=== PATIENT | male | born 1955 | race Caucasian/White ===

== ENCOUNTER 2018-09-15 12:25 | Emergency (ER) | payer BC ==
[2018-09-15] MEDS ORDERED: Sodium Chloride 0.9% 10 ML Syringe FLUSH PRN (12:42)
[2018-09-15] MEDS ORDERED: Aspirin 81 MG Tab.Chew PO ONE (13:33)
[2018-09-15] MEDS ORDERED: LORazepam 2 MG/ML SDV IVPUSH STA (13:44)
[2018-09-15] MEDS ORDERED: Sodium Chloride 0.9% 1,000 ML IV ONE (13:45)
--- NOTE | 2018-09-15 14:30 | EDM.PDOC ---
ED HPI GENERAL MEDICAL PROBLEM - General Chief Complaint: Neuro Symptoms/Deficits Stated Complaint: stroke code Time Seen by Provider: 09/15/18 13:15 Source of Information: Reports: Patient, Other (co-worker) History Limitations: Reports: Other (possible stroke/communication difficulties) - History of Present Illness INITIAL COMMENTS - FREE TEXT/NARRATIVE: Patient brought in by co-worker after he was noted that he was not quite his usual self since reporting for work at 7am. 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 Some issues with communication noted. Patient says that his last "normal" was last night before going to bed. He was aware that he was having some issues with confusion/change when he woke this morning but went to work anyway. Mild headache. Cannot tell us exactly were the headache is located, just says "my head". No noted focal weakness. Denied being on any meds. Med list of active medications obtained from local pharmacy. Noted to be slow answering questions, would give inaccurate answers such as birthdate or saying no to being on meds. Somewhat unreliable with history given the above. Also noted to have difficulty at times following directions and forming sentences Denies recent injury/health changes Headache Pain Score (Numeric/FACES): 5 - Related Data Allergies Allergy/AdvReac Type Severity Reaction Status Date / Time No Known Allergies Allergy Verified 09/15/18 13:19 Past Medical History Cardiovascular History: Reports: Bypass, High Cholesterol, Hypertension Endocrine/Metabolic History: Reports: Obesity/BMI 30+ Social & Family History - Living Situation & Occupation Living situation: Reports: , with Family Occupation: Employed ED ROS GENERAL - Review of Systems Review Of Systems: See Below Constitutional: Reports: No Symptoms HEENT: Reports: No Symptoms Respiratory: Reports: No Symptoms. Denies: Shortness of Breath, Pleuritic Chest Pain, Cough Cardiovascular: Reports: No Symptoms. Denies: Chest Pain GI/Abdominal: Reports: No Symptoms : Reports: No Symptoms Musculoskeletal: Reports: No Symptoms Skin: Reports: No Symptoms Neurological: Reports: Confusion, Headache, Trouble Speaking, Change in Speech, Other (head feels fuzzy.) Psychiatric: Reports: Anxiety Hematologic/Lymphatic: Reports: No Symptoms ED EXAM, NEURO - Physical Exam Exam: See Below Exam Limited By: Other (problems following directions and answering questions) General Appearance: Alert, No Apparent Distress, Obese Eye Exam: Bilateral Eye: EOMI, PERRL Ears: Normal External Exam, Normal Canal, Hearing Grossly Normal, Normal TMs Nose: No: Nasal Deformity, Nasal Swelling, Nasal Drainage Throat/Mouth: Normal Lips, Normal Voice, No Airway Compromise Head Exam: Atraumatic, Normocephalic Neck: Normal Inspection, Supple, Non-Tender, Full Range of Motion Respiratory/Chest: No Respiratory Distress, No Accessory Muscle Use, Wheezing ( faint, left lower lung). No: Crackles, Rales, Rhonchi, Stridor Cardiovascular: Normal Peripheral Pulses, Regular Rate, Rhythm, No Edema, No Murmur GI/Abdominal: Normal Bowel Sounds, Soft, Non-Tender (Male) Exam: Deferred Rectal (Males) Exam: Deferred Neurological: Alert, Normal Mood/Affect, Normal Dorsiflexion, CN II-XII Intact, Normal Plantar Flexion, Normal Gait, No Motor/Sensory Deficits DTR: 1+: Bicep (R), Bicep (L), Patella (R), Patella (L) Back Exam: No: CVA Tenderness (L), CVA Tenderness (R) Extremities: Normal Inspection, Normal Range of Motion, Non-Tender, Normal Capillary Refill Psychiatric: Anxious Skin Exam: Warm, Dry, Intact, Normal Color EKG INTERPRETATION EKG Date: 09/15/18 Time: 12:55 Rhythm: Other (Sinus, periodic PVCs) Rate (Beats/Min): 70 [place]: Normal P-Wave: Present QRS: Other (T wave appearance in V1-V4 slighly unusual, could reflect elevation) ST-T: Normal QT: Normal Comparison: Change From Previous EKG (previous EKG showed left BBB) Course - Orders/Labs/Meds Orders: Active Orders 24 hr Category Date Time Status Blood Glucose Check, Bedside [RC] ONETIME Care 09/15/18 12:30 Active Cardiac Monitoring [RC] . DIRECTED Care 09/15/18 12:42 Active Communication Order [RC] PER UNIT ROUTINE Care 09/15/18 14:00 Active EKG Documentation Completion [RC] ASDIRECTED Care 09/15/18 12:49 Active Head wo Cont [CT] Stat Exams 09/15/18 12:25 Taken PROLACTIN [REF] Stat Lab 09/15/18 12:42 Received Saline Lock Insert [OM.PC] Routine Oth 09/15/18 12:42 Ordered Labs: Laboratory Tests 09/15/18 09/15/18 09/15/18 Range/Units 12:42 12:42 12:42 WBC 10.8 H (4.0-10.2) K/uL RBC 5.60 H (4.33-5.41) M/uL Hgb 16.3 (13.1-16.8) g/dL Hct 46.5 (39.0-49.0) % MCV 83.0 L (84.0-98.0) fL MCH 29.1 (28.2-33.3) pg MCHC 35.1 (31.7-36.0) g/dL RDW 14.5 H (11.2-14.1) % Plt Count 292 (150-350) K/uL Neut % (Auto) 62.1 (45.0-80.0) % Lymph % (Auto) 21.7 (10.0-50.0) % [place] % (Auto) 11.4 (2.0-14.0) % Eos % (Auto) 4.5 (0.0-5.0) % Baso % (Auto) 0.3 (0.0-2.0) % Neut # (Auto) 6.69 (1.40-7.00) K/uL Lymph # (Auto) 2.33 (0.50-3.50) K/uL [place] # (Auto) 1.23 H (0.00-1.00) K/uL Eos # (Auto) 0.48 (0.00-0.50) K/uL Baso # (Auto) 0.03 (0.00-0.20) K/uL PT 11.4 (9.5-12.0) SEC INR 1.1 APTT 28.8 (21.0-31.3) SEC D-Dimer, Quantitative 675 H (0-400) ng/mL Sodium (136-145) mmol/L Potassium (3.5-5.1) mmol/L Chloride (98-107) mmol/L Carbon Dioxide (21.0-32.0) mmol/L BUN (7-18) mg/dL Creatinine (0.51-1.17) mg/dL Est Cr Clr Drug Dosing mL/min Estimated GFR (MDRD) mL/min Glucose (74-106) mg/dL Calcium (8.5-10.1) mg/dL Magnesium (1.8-2.4) mg/dL Total Bilirubin (0.2-1.0) mg/dL AST (15-37) U/L ALT (12-78) U/L Alkaline Phosphatase (46-116) IU/L Creatine Kinase (26-308) U/L Creatine Kinase Index (0.0-2.5) % CK-MB (CK-2) (0.00-3.60) ng/mL Troponin I (0.000-0.056) ng/mL NT-Pro-B Natriuret Pep (0-125) pg/mL Total Protein (6.4-8.2) g/dL Albumin (3.4-5.0) g/dL 09/15/18 09/15/18 09/15/18 Range/Units 12:42 15:15 15:45 WBC (4.0-10.2) K/uL RBC (4.33-5.41) M/uL Hgb (13.1-16.8) g/dL Hct (39.0-49.0) % MCV (84.0-98.0) fL MCH (28.2-33.3) pg MCHC (31.7-36.0) g/dL RDW (11.2-14.1) % Plt Count (150-350) K/uL Neut % (Auto) (45.0-80.0) % Lymph % (Auto) (10.0-50.0) % [place] % (Auto) (2.0-14.0) % Eos % (Auto) (0.0-5.0) % Baso % (Auto) (0.0-2.0) % Neut # (Auto) (1.40-7.00) K/uL Lymph # (Auto) (0.50-3.50) K/uL [place] # (Auto) (0.00-1.00) K/uL Eos # (Auto) (0.00-0.50) K/uL Baso # (Auto) (0.00-0.20) K/uL PT (9.5-12.0) SEC INR APTT (21.0-31.3) SEC D-Dimer, Quantitative (0-400) ng/mL Sodium 137 (136-145) mmol/L Potassium 3.8 (3.5-5.1) mmol/L Chloride 102 (98-107) mmol/L Carbon Dioxide 23.3 (21.0-32.0) mmol/L BUN 19 H (7-18) mg/dL Creatinine 1.41 H (0.51-1.17) mg/dL Est Cr Clr Drug Dosing 53.62 mL/min Estimated GFR (MDRD) 51 mL/min Glucose 114 H (74-106) mg/dL Calcium 8.4 L (8.5-10.1) mg/dL Magnesium 1.5 L (1.8-2.4) mg/dL Total Bilirubin 0.7 (0.2-1.0) mg/dL AST 24 (15-37) U/L ALT 31 (12-78) U/L Alkaline Phosphatase 103 (46-116) IU/L Creatine Kinase 213 (26-308) U/L Creatine Kinase Index 1.5 TNP (0.0-2.5) % CK-MB (CK-2) 3.30 3.00 (0.00-3.60) ng/mL Troponin I 0.126 H* 0.147 H* (0.000-0.056) ng/mL NT-Pro-B Natriuret Pep 220 H (0-125) pg/mL Total Protein 7.6 (6.4-8.2) g/dL Albumin 3.5 (3.4-5.0) g/dL Meds: Medications Discontinued Medications Generic Name Dose Route Start Last Admin Trade Name Marina PRN Reason Stop Dose Admin Aspirin 324 mg 09/15/18 13:33 09/15/18 13:56 Aspirin PO 09/15/18 13:34 324 mg ONETIME ONE Administration Sodium Chloride 1,000 mls @ 100 mls/hr 09/15/18 13:45 09/15/18 13:56 Normal Saline IV 09/15/18 23:44 100 mls/hr .BOLUS ONE Administration Lorazepam 1 mg 09/15/18 13:44 09/15/18 13:55 Ativan IVPUSH 09/15/18 13:45 1 mg NOW STA Administration Magnesium Sulfate/Dextrose 1 gm 09/15/18 15:08 09/15/18 15:43 Magnesium 1 Gm In D5w 100 Ml IV 09/15/18 15:09 1 gm ONETIME ONE Administration Sodium Chloride 10 ml 09/15/18 12:42 Saline Flush FLUSH ASDIRECTED PRN Keep Vein Open - Radiology Interpretation CT Results Date: 09/15/18 CT Results Time: 13:11 (change noted left parietal-occipital area that could represent a stroke. ) - Re-Assessments/Exams Free Text/Narrative Re-Assessment/Exam: Stroke code called upon patient's arrival. Protocol initiated. Patient taken directly to scanner. There was approximately a 30min delay sending the films to be read due to overhead door technician error. This led to a delay in receiving read from [facility] which was received at 1311. Changes noted left parietal occipital area. Call was immediately placed to [facility]. Discussed patient with at 1320. Given timeframe since last normal ( last night) patient not candidate from [facility]. reviewed the CT studies and had concern that there could be another process causing the observed intracranial changes, including infection or tumor. Patient accepted in transfer by , hospitalist. Labs also became available. Essentially normal WBC. Elevated Troponin noted. Patient denied chest pain/anginal symptoms. EKG showed mild changes in ventricular leads with possible minimal ST elevation. EKG faxed to [facility] so that would be able to review it. Unable to fax due to issues on receiving end. Most recent reattempt to fax at 1420. Normal CK-MB noted. ASA given as precaution (hemorrhagic stroke had been ruled out). 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 Mild elevation DDimer/BNP noted. Renal insufficiency identified. IV fluids started in ER to help with BUN/Cr as patient will need to be scanned with contrast once he is at [facility]. Prolonged wait time in ER due to no open bed being available at [facility]. Free Text/Narrative Re-Assessment/Exam: 09/15/18 15:43 Bed assignment received. EMS contacted to transfer patient. Departure - Departure Time of Disposition: 16:00 Disposition: DC/Tfer to Acute Hospital 02 Condition: Good Clinical Impression: Stroke-like symptom, Hypomagnesemia - Discharge Information *PRESCRIPTION DRUG MONITORING PROGRAM REVIEWED*: Not Applicable *COPY OF PRESCRIPTION DRUG MONITORING REPORT IN PATIENT JEROME: Not Applicable Referrals: PCP,Not In Area [Primary Care Provider] - Forms: ED Department Discharge - My Orders Last 24 Hours: My Active Orders 09/15/18 12:25 Head wo Cont [CT] Stat 09/15/18 12:30 Blood Glucose Check, Bedside [RC] ONETIME 09/15/18 12:42 Cardiac Monitoring [RC] . DIRECTED PROLACTIN [REF] Stat Saline Lock Insert [OM.PC] Routine 09/15/18 12:49 EKG Documentation Completion [RC] ASDIRECTED 09/15/18 14:00 Communication Order [RC] PER UNIT ROUTINE - Assessment/Plan Last 24 Hours: My Active Orders 09/15/18 12:25 Head wo Cont [CT] Stat 09/15/18 12:30 Blood Glucose Check, Bedside [RC] ONETIME 09/15/18 12:42 Cardiac Monitoring [RC] . DIRECTED PROLACTIN [REF] Stat Saline Lock Insert [OM.PC] Routine 09/15/18 12:49 EKG Documentation Completion [RC] ASDIRECTED 09/15/18 14:00 Communication Order [RC] PER UNIT ROUTINE
== END 2018-09-15 16:07 ==
LOC: LL.ED 12:25
DX: R51 Headache (principal); R41.0 Disorientation, unspecified; R47.9 Unspecified speech disturbances; E83.42 Hypomagnesemia; I10 Essential (primary) hypertension; E78.00 Pure hypercholesterolemia, unspecified
CPT/HCPCS: 36415; 70450; 80053; 82550; 82553; 83735; 83880; 84146; 84484; 85025; 85379; 85610; 85730; 93005; 96361; 96365; 96375; 99285; A9270-GY; J2060; J3475; J7030

== ENCOUNTER 2021-04-29 10:57 | Emergency (ER) | payer MEDICARE, OTHER ==
[2021-04-29] MEDS ORDERED: Nitroglycerin 0.4 MG Tab.SL SL ONE (11:26)
--- NOTE | 2021-04-29 11:26 | EDM.PDOC ---
ED HPI GENERAL MEDICAL PROBLEM - General Chief Complaint: Chest Pain Stated Complaint: chest pain Time Seen by Provider: 04/29/21 11:12 Source of Information: Reports: Patient History Limitations: Reports: No Limitations - History of Present Illness INITIAL COMMENTS - FREE TEXT/NARRATIVE: Patient comes to ER with substernal chest pain. 11/16. Waxes and wanes a bit but is not affected by positional change/breathing. 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 Normal morning for patient. Started to notice the central chest pain when driving home from oil change appointment. Came to ER when pain did not go away after a half hour. Denies any radiation of pain. No SOB/diaphoresis/nausea. No other changes reported. Does not have Nitro. chest pain Pain Score (Numeric/FACES): 1 - Related Data Allergies Allergy/AdvReac Type Severity Reaction Status Date / Time No Known Allergies Allergy Verified 04/29/21 11:17 Home Meds: Home Meds Albuterol [Take Home: Albuterol 18 GM, 1 INH Pack] 1 - 2 puff INH Q4HR PRN 04/29/21 [History] Aspirin [Aspirin EC] 81 mg PO DAILY 04/29/21 [History] Ezetimibe 10 mg PO DAILY 04/29/21 [History] Fluticasone/Vilanterol [Breo Ellipta 200-25 MCG Inhalation Kit] 1 puff INH DAILY 04/29/21 [History] Warfarin Sodium [Jantoven] 5 mg PO MOWEFR@0800 04/29/21 [History] Warfarin Sodium [Jantoven] 7.5 mg PO SUTUTHSA@0800 04/29/21 [History] atorvaSTATin Calcium [Atorvastatin Calcium] 80 mg PO BEDTIME 04/29/21 [History] carvediloL [Carvedilol] 6.25 mg PO Q12HR 04/29/21 [History] lisinopriL [Lisinopril] 5 mg PO BID 04/29/21 [History] Past Medical History Cardiovascular History: Reports: Bypass, High Cholesterol, Hypertension Endocrine/Metabolic History: Reports: Obesity/BMI 30+ Social & Family History - Tobacco Use Tobacco Use Status *Q: Never Tobacco User - Caffeine Use Caffeine Use: Reports: Soda - Alcohol Use Alcohol Use History: Yes Alcohol Use Frequency: Rarely - Living Situation & Occupation Living situation: Reports: , with Family Occupation: Employed ED ROS GENERAL - Review of Systems Review Of Systems: See Below Constitutional: Reports: No Symptoms HEENT: Reports: No Symptoms Respiratory: Reports: No Symptoms. Denies: Shortness of Breath, Wheezing, Pleuritic Chest Pain, Cough Cardiovascular: Reports: Chest Pain. Denies: Edema, Lightheadedness, Palpitations, Syncope GI/Abdominal: Reports: No Symptoms : Reports: No Symptoms Musculoskeletal: Reports: Other (no acute changes from baseline) Skin: Reports: No Symptoms Neurological: Reports: No Symptoms Psychiatric: Reports: No Symptoms Hematologic/Lymphatic: Reports: No Symptoms Immunologic: Reports: No Symptoms ED EXAM, GENERAL - Physical Exam Exam: See Below Exam Limited By: No Limitations General Appearance: Alert, WD/WN, No Apparent Distress Eye Exam: Bilateral Eye: EOMI, PERRL Ears: Normal External Exam, Hearing Grossly Normal Nose: No: Nasal Deformity, Nasal Swelling, Nasal Drainage Throat/Mouth: Normal Lips, Normal Voice, No Airway Compromise Head: Atraumatic, Normocephalic Neck: Supple, Non-Tender, Full Range of Motion Respiratory/Chest: No Respiratory Distress, Lungs Clear, Normal Breath Sounds, No Accessory Muscle Use, Chest Non-Tender Cardiovascular: Regular Rate, Rhythm, No Edema, No Murmur GI/Abdominal: Soft, Non-Tender, No Distention (Male) Exam: Deferred Rectal (Males) Exam: Deferred Back Exam: No: CVA Tenderness (L), CVA Tenderness (R), Decreased Range of Motion, Muscle Spasm Extremities: Non-Tender, No Pedal Edema, Normal Capillary Refill Neurological: Alert, Oriented, Normal Cognition, No Motor/Sensory Deficits Psychiatric: Normal Affect, Normal Mood Skin Exam: Warm, Dry, Intact, Normal Color #1 Interpretation EKG Date: 04/29/21 Time: 11:19 Rhythm: NSR Rate (Beats/Min): 64 [place]: Normal P-Wave: Present QRS: Normal ST-T: Other (Mild atypical appearance V1-3/III) QT: Normal Comparison: No Change (No significant change when compared to EKG from 2019. Intermittent PVCs noted.) #2 Interpretation EKG Date: 04/29/21 Time: 16:10 Rhythm: Other (sinus bradycardia) Rate (Beats/Min): 57 [place]: Normal P-Wave: Present QRS: Normal ST-T: Other (has minor morphology change similar to last EKG ventricular leads. T wave flipped in direction in II/III/AVL/AVF) QT: Normal Course - Vital Signs Last Recorded V/S: Last Vital Signs Temp 36.3 C 04/29/21 15:15 Pulse 55 L 04/29/21 16:00 Resp 17 04/29/21 16:00 BP 128/72 04/29/21 16:00 Pulse Ox 98 04/29/21 11:24 - Orders/Labs/Meds Orders: Active Orders 24 hr Category Date Time Status Chest 1V Frontal [CR] Stat Exams 04/29/21 11:00 Taken CKMB [REF] Stat Lab 04/29/21 11:09 Ordered TROPONIN I HIGH SENSITIVITY [CHEM] Timed Lab 04/29/21 21:00 Ordered Sodium Chloride 0.9% [Saline Flush] Med 04/29/21 11:11 Active 10 ml FLUSH ASDIRECTED PRN Saline Lock Insert [OM.PC] Routine Oth 04/29/21 11:11 Ordered Medication Orders Sodium Chloride (Sodium Chloride 0.9% 10 Ml Syringe) 10 ml FLUSH ASDIRECTED PRN PRN Reason: Keep Vein Open Last Admin: 04/29/21 15:26 Dose: 10 ml Documented by: Admin: 04/29/21 14:23 Dose: 10 ml Documented by: ROBBIN Labs: Laboratory Tests 04/29/21 04/29/21 04/29/21 Range/Units 11:05 11:05 11:05 WBC 8.7 (4.0-10.2) K/uL RBC 5.83 H (4.33-5.41) M/uL Hgb 16.9 H (13.1-16.8) g/dL Hct 48.7 (39.0-49.0) % MCV 83.5 L (84.0-98.0) fL MCH 29.0 (28.2-33.3) pg MCHC 34.7 (31.7-36.0) g/dL RDW 14.9 H (11.2-14.1) % Plt Count 244 (150-350) K/uL Neut % (Auto) 62.9 (45.0-80.0) % Lymph % (Auto) 22.6 (10.0-50.0) % [place] % (Auto) 10.0 (2.0-14.0) % Eos % (Auto) 4.3 (0.0-5.0) % Baso % (Auto) 0.2 (0.0-2.0) % Neut # (Auto) 5.46 (1.40-7.00) K/uL Lymph # (Auto) 1.96 (0.50-3.50) K/uL [place] # (Auto) 0.87 (0.00-1.00) K/uL Eos # (Auto) 0.37 (0.00-0.50) K/uL Baso # (Auto) 0.02 (0.00-0.20) K/uL PT 21.4 H (9.5-12.0) SEC INR 2.2 APTT 31.7 (24.5-32.8) SEC D-Dimer, Quantitative (0-400) ng/mL Sodium 140 (136-145) mmol/L Potassium 3.9 (3.5-5.1) mmol/L Chloride 104 (98-107) mmol/L Carbon Dioxide 24.1 (21.0-32.0) mmol/L Anion Gap 11.9 (7-15) meq/L BUN 25 H (7-18) mg/dL Creatinine 1.77 H (0.51-1.17) mg/dL Est Cr Clr Drug Dosing 41.05 mL/min Estimated GFR (MDRD) 39 mL/min Glucose 138 H (70-99) mg/dL Lactic Acid (0.4-2.0) mmol/L Calcium 8.5 (8.5-10.1) mg/dL Magnesium 1.6 L (1.8-2.4) mg/dL Total Bilirubin 1.3 H (0.2-1.0) mg/dL AST 25 (15-37) U/L ALT 37 (12-78) U/L Alkaline Phosphatase 81 (46-116) IU/L Creatine Kinase 139 (26-308) U/L Troponin I High Sens 213 H* (<=76) ng/L NT-Pro-B Natriuret Pep 160 H (0-125) pg/mL Total Protein 7.3 (6.4-8.2) g/dL Albumin 3.9 (3.4-5.0) g/dL TSH, Ultra Sensitive 1.266 (0.358-3.740) mIU/mL 04/29/21 04/29/21 04/29/21 Range/Units 11:05 11:05 15:00 WBC (4.0-10.2) K/uL RBC (4.33-5.41) M/uL Hgb (13.1-16.8) g/dL Hct (39.0-49.0) % MCV (84.0-98.0) fL MCH (28.2-33.3) pg MCHC (31.7-36.0) g/dL RDW (11.2-14.1) % Plt Count (150-350) K/uL Neut % (Auto) (45.0-80.0) % Lymph % (Auto) (10.0-50.0) % [place] % (Auto) (2.0-14.0) % Eos % (Auto) (0.0-5.0) % Baso % (Auto) (0.0-2.0) % Neut # (Auto) (1.40-7.00) K/uL Lymph # (Auto) (0.50-3.50) K/uL [place] # (Auto) (0.00-1.00) K/uL Eos # (Auto) (0.00-0.50) K/uL Baso # (Auto) (0.00-0.20) K/uL PT (9.5-12.0) SEC INR APTT (24.5-32.8) SEC D-Dimer, Quantitative 128 (0-400) ng/mL Sodium (136-145) mmol/L Potassium (3.5-5.1) mmol/L Chloride (98-107) mmol/L Carbon Dioxide (21.0-32.0) mmol/L Anion Gap (7-15) meq/L BUN (7-18) mg/dL Creatinine (0.51-1.17) mg/dL Est Cr Clr Drug Dosing mL/min Estimated GFR (MDRD) mL/min Glucose (70-99) mg/dL Lactic Acid 1.2 (0.4-2.0) mmol/L Calcium (8.5-10.1) mg/dL Magnesium (1.8-2.4) mg/dL Total Bilirubin (0.2-1.0) mg/dL AST (15-37) U/L ALT (12-78) U/L Alkaline Phosphatase (46-116) IU/L Creatine Kinase (26-308) U/L Troponin I High Sens 193 H* (<=76) ng/L NT-Pro-B Natriuret Pep (0-125) pg/mL Total Protein (6.4-8.2) g/dL Albumin (3.4-5.0) g/dL TSH, Ultra Sensitive (0.358-3.740) mIU/mL Meds: Medications Generic Name Dose Route Start Last Admin Trade Name Freq PRN Reason Stop Dose Admin Sodium Chloride 10 ml 04/29/21 11:11 04/29/21 15:26 Sodium Chloride 0.9% 10 Ml Syringe FLUSH 10 ml ASDIRECTED PRN Administration Keep Vein Open Discontinued Medications Generic Name Dose Route Start Last Admin Trade Name Freq PRN Reason Stop Dose Admin Aspirin 162 mg 04/30/21 11:46 Aspirin 81 Mg Tab.Chew PO 04/30/21 11:47 ONETIME ONE Aspirin Confirm 04/29/21 14:11 04/29/21 14:22 Aspirin 81 Mg Tab.Chew Administered 04/29/21 14:12 Not Given Dose 162 mg .ROUTE .STK-MED ONE Aspirin 162 mg 04/29/21 11:46 04/29/21 14:22 Aspirin 81 Mg Tab.Chew PO 04/29/21 11:47 162 mg ONETIME ONE Administration Magnesium Sulfate/Dextrose 1 100 mls @ 100 mls/hr 04/29/21 12:28 04/29/21 14:23 gm/ Premix IV 04/29/21 13:27 100 mls/hr ONETIME ONE Administration Metoprolol Tartrate 50 mg 04/29/21 12:32 04/29/21 15:25 Metoprolol Tartrate 50 Mg Tab PO 04/29/21 12:33 50 mg ONETIME ONE Administration Metoprolol Tartrate Confirm 04/29/21 15:21 04/29/21 15:27 Metoprolol Tartrate 50 Mg Tab Administered 04/29/21 15:22 Not Given Dose 50 mg .ROUTE .STK-MED ONE Nitroglycerin 0.4 mg 04/29/21 11:26 04/29/21 11:31 Nitroglycerin 0.4 Mg Tab.Sl SL 04/29/21 11:27 0.4 mg ONETIME ONE Administration - Radiology Interpretation Free Text/Narrative:: No acute changes noted on chest xray - Re-Assessments/Exams Free Text/Narrative Re-Assessment/Exam: 04/29/21 12:38 Patient had single baby ASA earlier today. 2 additional given PO in ER. Therapeutic INR. Vital signs stable. Patient very vague on severity of chest discomfort when asked. He felt it was a mild discomfort. Not much change/improvement noted with nitro SL. BP dropped significantly and second dose not given. No obvious acute changes on EKG or chest xray. Labs did show elevated Cr of 1.77 and proBNP 160. Patient has history of CHF/chronic renal insufficiency. Mag low at 1.6 HS Troponin elevated at 213. Cannot exclude patient's chronic heart and renal failure contributing to that elevation. EKG faxed to [facility] and patient discussed with on-call Cardiology, . She felt that there was no immediate indication for transfer and that chest pain could be due to non-cardiac cause such as soft tissue/musc-skel or GI etiology. Recommended serial troponins and keeping patient here. [facility] is currently full and not accepting non-emergent patients. Patient does not want to be admitted to observation at this time but is willing to stay as an ER patient and have lab/EKG rechecked at 1500. He declined when offer was made to contact [facility] to see if they had available beds at this time. 04/29/21 17:33 Recheck HST 193 EKG showed no change in ventricular leads but Ts changed direction in I,II,III,AVL,AVF. Patient pain-free and resting comfortably. Given that [facility] is currently full, patient gave OK for us to call and review new lab/EKG and today's visit with [facility] Cardiology. EKGs faxed and reviewed by Dr. Brady. After reviewing labs/EKGs/Troponins he felt that next best move if for patient to have stress test. Patient is scheduled for a stress test at [facility] on Saturday. Patient does not want to be in the hospital being observed overnight. Given that patient is pain free in addition to the above, Dr. Brady did not feel that the patient had to stay overnight and have additional labs in AM. This was all reviewed with the patient. He continues to want to go home. It was offered to him that we could check another troponin as an outpatient tomorrow if he is willing to come in to the hospital. He knows that he should be rechecked if he starts having new problems with chest pain/SOB/diaphoresis etc. He does not want Rx for Nitro/says he does not like it. Differential for chest pain includes chest wall pain/GI/cardiac Departure - Departure Time of Disposition: 18:00 Disposition: Home, Self-Care 01 Condition: Good Clinical Impression: Chest pain Qualifiers: Chest pain type: precordial chest pain Qualified Code(s): R07.2 - Precordial pain - Discharge Information *PRESCRIPTION DRUG MONITORING PROGRAM REVIEWED*: Not Applicable *COPY OF PRESCRIPTION DRUG MONITORING REPORT IN PATIENT JEROME: Not Applicable Instructions: Nonspecific Chest Pain, Adult Referrals: Clarice Savage NP [Primary Care Provider] - Forms: ED Department Discharge Additional Instructions: See how you feel over the next few days until you get your stress test on Saturday. Avoid walking/strenuous activity until after stress test and are given clearance to walk. If you re-develop chest pain get rechecked, especially if accompanied by nausea/sweating/shortness of breath. We would be more than happy to recheck your Troponin/EKG tomorrow if you are willing to return for another lab draw. Sepsis Event Note (ED) - Evaluation Sepsis Screening Result: No Definite Risk - Focused Exam Vital Signs: Vital Signs Temp Pulse Pulse Resp BP BP Pulse Ox 04/29/21 16:00 55 L 17 128/72 04/29/21 15:25 60 124/92 H 04/29/21 15:15 36.3 C 64 17 124/92 H 04/29/21 14:30 60 18 146/78 H 04/29/21 14:00 61 16 105/52 L 04/29/21 13:30 89 16 139/58 L 04/29/21 13:00 100 15 107/64 04/29/21 12:15 71 15 104/80 04/29/21 12:00 69 14 99/75 04/29/21 11:55 36.4 C 90 15 78/52 L 04/29/21 11:44 70 15 100/68 04/29/21 11:31 141/98 H 04/29/21 11:24 66 16 141/98 H 98 04/29/21 11:09 62 15 112/79 95 04/29/21 11:00 36.4 C 66 15 112/79 98 - My Orders Last 24 Hours: My Active Orders 04/29/21 11:00 Chest 1V Frontal [CR] Stat 04/29/21 11:09 CKMB [REF] Stat 04/29/21 11:11 Sodium Chloride 0.9% [Saline Flush] 10 ml FLUSH ASDIRECTED PRN Saline Lock Insert [OM.PC] Routine 04/29/21 21:00 TROPONIN I HIGH SENSITIVITY [CHEM] Timed - Assessment/Plan Last 24 Hours: My Active Orders 04/29/21 11:00 Chest 1V Frontal [CR] Stat 04/29/21 11:09 CKMB [REF] Stat 04/29/21 11:11 Sodium Chloride 0.9% [Saline Flush] 10 ml FLUSH ASDIRECTED PRN Saline Lock Insert [OM.PC] Routine 04/29/21 21:00 TROPONIN I HIGH SENSITIVITY [CHEM] Timed
[2021-04-29 11:37] LABS: PTT,PARTIAL THROMBOPLSTIN TIME 31.7 SEC (24.5-32.8)
[2021-04-29 11:41] LABS: ANION GAP 11.9 meq/L (7-15)
[2021-04-29] MEDS ORDERED: Aspirin 81 MG Tab.Chew PO ONE (11:46)
[2021-04-29] MEDS ORDERED: Metoprolol Tartrate 50 MG Tab PO ONE (12:32)
[2021-04-29] MEDS ORDERED: Aspirin 81 MG Tab.Chew ONE (14:11)
[2021-04-29] MEDS: Sodium Chloride 0.9% 10 ML Syringe FLUSH PRN ×3 (14:23→17:51)
[2021-04-29] MEDS ORDERED: Metoprolol Tartrate 50 MG Tab ONE (15:21)
[2021-04-29 16:49] VITALS: BP 128/72; PULSE 55
[2021-04-29] MEDS ORDERED: Pantoprazole 40 MG Vial IVPUSH ONE (17:41)
[2021-04-30] MEDS ORDERED: Aspirin 81 MG Tab.Chew PO ONE (11:46)
== END 2021-04-29 18:10 | disposition home or self-care (01) ==
LOC: LL.ED 10:57
DX: R07.2 Precordial pain (principal); E78.00 Pure hypercholesterolemia, unspecified; I10 Essential (primary) hypertension; E66.9 Obesity, unspecified; Z68.30 Body mass index [BMI] 30.0-30.9, adult; Z95.1 Presence of aortocoronary bypass graft; Z79.82 Long term (current) use of aspirin; Z79.01 Long term (current) use of anticoagulants; Z79.899 Other long term (current) drug therapy
CPT/HCPCS: 36415; 71045; 80053; 82550; 83605; 83735; 83880; 84443; 84484; 85025; 85379; 85610; 85730; 93005; 93010; 96365; 96375; 99284; 99285-25; A9270-GY; C9113; J3475

== ENCOUNTER 2023-09-26 10:41 | Day surgery (SDC) | payer MEDICARE, OTHER ==
[~2023-09-26 10:41] MED LIST: Lactated Ringers 1,000 ML IV SCH; Midazolam 1 MG/ML 2 ML SDV ONE; Propofol 200 MG/20 ML SDV ONE; Sodium Chloride 0.9% 10 ML Syringe FLUSH PRN
[2023-09-26 14:34] VITALS: BP 121/93; PULSE 60
== END 2023-09-26 13:10 ==
LOC: LL.SDS 10:41
PROVIDERS: ATTEND Surgery
DX: Z12.11 Encounter for screening for malignant neoplasm of colon (principal); D12.2 Benign neoplasm of ascending colon; D12.3 Benign neoplasm of transverse colon; D12.5 Benign neoplasm of sigmoid colon; K57.30 Diverticulosis of large intestine without perforation or abscess without bleeding; I13.0 Hypertensive heart and chronic kidney disease with heart failure and stage 1 through stage 4 chronic kidney disease, or unspecified chronic kidney disease; N18.31 Chronic kidney disease, stage 3a; I50.22 Chronic systolic (congestive) heart failure; I25.719 Atherosclerosis of autologous vein coronary artery bypass graft(s) with unspecified angina pectoris; I25.5 Ischemic cardiomyopathy; J44.9 Chronic obstructive pulmonary disease, unspecified; J45.40 Moderate persistent asthma, uncomplicated; E78.5 Hyperlipidemia, unspecified; Z79.899 Other long term (current) drug therapy
CPT/HCPCS: 00812; J2250; J2704; J7120

== ENCOUNTER 2024-05-29 14:40 | Emergency (ER) | payer MEDICARE ==
[2024-05-29 15:27] VITALS: BP 110/73; PULSE 80
[2024-05-29 16:00] LABS: INFLUENZA A NAA NEGATIVE (NEGATIVE); INFLUENZA B NAA NEGATIVE (NEGATIVE); RESPIRATORY SYNCYTIAL VIR NAA NEGATIVE (NEGATIVE)
[2024-05-29 16:09] LABS: CORONAVIRUS COVID-19 NAA POSITIVE (NEGATIVE)
== END 2024-05-29 16:30 ==
LOC: LL.ED 14:40
DX: U07.1 COVID-19 (principal); J44.9 Chronic obstructive pulmonary disease, unspecified; E66.9 Obesity, unspecified; I11.0 Hypertensive heart disease with heart failure; I50.9 Heart failure, unspecified; E78.00 Pure hypercholesterolemia, unspecified; M19.90 Unspecified osteoarthritis, unspecified site; Z86.73 Personal history of transient ischemic attack (TIA), and cerebral infarction without residual deficits; Z95.1 Presence of aortocoronary bypass graft; Z79.01 Long term (current) use of anticoagulants; Z79.82 Long term (current) use of aspirin; Z79.899 Other long term (current) drug therapy
CPT/HCPCS: 0241U; 99283

== ENCOUNTER 2025-04-06 11:45 | Emergency (ER) | payer MEDICAID, MEDICARE, OTHER ==
[2025-04-06 11:55] VITALS: BP 124/93; PULSE 66
[2025-04-06 12:17] LABS: INR 2.0 (0.9-1.1); PTT,PARTIAL THROMBOPLSTIN TIME 34.1 SEC (23.8-34.4)
[2025-04-06 12:24] LABS: PRO B-TYPE NATRIUR PEPT,BNPPRO 1724.0 pg/mL (0-125)
[2025-04-06] MEDS: Heparin Sodium 5,000 Units/ML Vial IVPUSH ONE (12:26)
[2025-04-06] MEDS ORDERED: Heparin Sodium/0.45% NaCl 500 ML IV SCH (12:30)
[2025-04-06] MEDS: Heparin Sodium/0.45% NaCl 500 ML IV SCH (12:40)
[2025-04-06] MEDS: Heparin Sodium/0.45% NaCl 500 ML ONE (12:40)
== END 2025-04-06 13:54 ==
LOC: LL.ED 11:45
DX: I21.4 Non-ST elevation (NSTEMI) myocardial infarction (principal); I11.0 Hypertensive heart disease with heart failure; I50.9 Heart failure, unspecified; M19.90 Unspecified osteoarthritis, unspecified site; E78.00 Pure hypercholesterolemia, unspecified; I25.810 Atherosclerosis of coronary artery bypass graft(s) without angina pectoris; J44.89 Other specified chronic obstructive pulmonary disease; E66.9 Obesity, unspecified; Z79.82 Long term (current) use of aspirin; Z79.01 Long term (current) use of anticoagulants; Z79.899 Other long term (current) drug therapy; Z68.37 Body mass index [BMI] 37.0-37.9, adult
CPT/HCPCS: 36415; 83605; 83735; 83880; 85610; 85730; 93005; 96365; 99285; A9270; J1644